=== PATIENT | male | born 1940 | race Caucasian/White ===

== ENCOUNTER 2018-02-10 12:41 | Outpatient (CLI) | payer MEDICARE, BC ==
[~2018-02-10] VITALS: Ht 177.8 cm; Wt 89.4 kg
[~2018-02-10 12:41] MED LIST: AMLO2.5T2 PO; ASPI-611 PO; CARV-50 PO; FLO0.4C PO; LISI-600 PO; ZOC40T PO
[2018-02-10] MEDS ORDERED: albuterol 2.5 MG/3 ML nebule NEB PRN (13:20)
== END 2018-02-10 23:59 | disposition home or self-care (01) ==
LOC: RT 12:41
PROVIDERS: ATTEND Internal Medicine
DX: R05 Cough (principal); F17.200 Nicotine dependence, unspecified, uncomplicated; I10 Essential (primary) hypertension; Z79.899 Other long term (current) drug therapy
CPT/HCPCS: 85018; 94010; 94727; 94729

== ENCOUNTER 2019-08-02 14:15 | Inpatient (IN) | payer MEDICARE, BC ==
[~2019-08-02] VITALS: Ht 182.9 cm; Wt 88.6 kg
[2019-08-02] MEDS ORDERED: normal saline 1000ML IV soln IV ONE (14:35)
--- NOTE | 2019-08-02 14:54 | NUR ---
breaking primary RN, pt is sitting up in bed, awaiting lab results
--- NOTE | 2019-08-02 14:56 | NUR ---
pt to ct
[2019-08-02 14:57] LABS: BASOPHILS # (AUTO) 0.1 X10'3 (0-0.2); BASOPHILS % (AUTO) 0.4 % (0-1); EOSINOPHILS % (AUTO) 0.1 % (0-6); HEMATOCRIT 37.3 % (42.0-52.0); HEMOGLOBIN 12.7 g/dl (14.0-17.9); LYMPHOCYTES # (AUTO) 0.2 X10'3 (1.1-4.8); LYMPHOCYTES % (AUTO) 1.4 % (21-51); MEAN CORPUSCULAR HEMOGLOBIN 33.7 PG (27.0-31.0); MEAN CORPUSCULAR HGB CONC 34.1 g/dL (33.0-36.5); MEAN CORPUSCULAR VOLUME 98.7 FL (78-98); MEAN PLATELET VOLUME 7.5 FL (7.4-10.4); MONOCYTES # (AUTO) 0.4 X10'3 (0-0.9); MONOCYTES % (AUTO) 3.3 % (2-12); NEUTROPHILS # (AUTO) 12.8 X10'3 (1.8-7.7); NEUTROPHILS % (AUTO) 94.8 % (42-75); PLATELET COUNT 205 X10'3 (140-440); RED BLOOD COUNT 3.78 X10'6 (4.70-6.10); RED CELL DISTRIBUTION WIDTH 13.5 % (11.5-14.5); WHITE BLOOD COUNT 13.5 X10'3 (4.5-11.0)
[2019-08-02 15:13] LABS: ALANINE AMINOTRANSFERASE 18 U/L (12-78); ALBUMIN 3.3 G/DL (3.4-5.0); ALKALINE PHOSPHATASE 83 IU/L (46-116); ANION GAP 9 (8-16); ASPARTATE AMINO TRANSFERASE 12 U/L (10-37); BILIRUBIN,TOTAL 0.9 MG/DL (0.1-1.0); BLOOD UREA NITROGEN 38 MG/DL (7-18); BUN/CREATININE RATIO 21.5 (5.4-32.0); CALCIUM 8.2 MG/DL (8.5-10.1); CHLORIDE 99 MMOL/L (99-107); CREATININE 1.77 MG/DL (0.60-1.10); GLUCOSE 98 MG/DL (70-104); MAGNESIUM 1.5 MG/DL (1.5-2.4); POTASSIUM 4.2 MMOL/L (3.5-5.1); SODIUM 131 MMOL/L (135-145); TOTAL CARBON DIOXIDE 22.7 MMOL/L (24-32); TOTAL PROTEIN 6.7 G/DL (6.4-8.2); eGFR 37 ML/MIN
[2019-08-02] MEDS ORDERED: LISI10TA4 PO (15:23)
[2019-08-02] MEDS ORDERED: TROS20TA4 PO (15:23)
[2019-08-02] MEDS ORDERED: ROSU10TA28 PO (15:23)
[2019-08-02] MEDS ORDERED: WARF4TAB69 PO (15:23)
[2019-08-02] MEDS ORDERED: AMIO100T PO (15:23)
[2019-08-02] MEDS ORDERED: LACT10SO66 PO (15:23)
[2019-08-02] MEDS ORDERED: FLO0.4C PO (15:23)
[2019-08-02 15:41] LABS: CLARITY,URINE TURBID (Clear); COLOR,URINE AMBER (Yellow); GLUCOSE, URINE NEGATIVE (Neg); KETONES,URINE TRACE mg/dl (Neg); LEUKOCYTE ESTERASE ,URINE LARGE (Neg); NITRITES, URINE NEGATIVE (Neg); OCCULT BLOOD,URINE LARGE (Neg); PH,URINE 5.5 (4.8-8.0); PROTEIN,URINE 100 mg/dl (Neg); UA COLLECTION TYPE STRAIGHT CATH
[2019-08-02] MEDS ORDERED: CefTRIAXone 2gm/D5W 50ml 50 ML IV ONE (15:45)
[2019-08-02 15:50] LABS: RBC,URINE TNTC /HPF (0-2)
[2019-08-02 15:51] LABS: BACTERIA,URINE FEW /HPF (Neg); SQUAMOUS EPITHELIAL CELL,UR FEW /LPF (FEW); WBC,URINE TNTC /HPF (0-4)
[2019-08-02 15:52] LABS: MUCUS STRANDS NONE SEEN /LPF (Neg); TRANSITIONAL EPI CELLS,URINE FEW /HPF
[2019-08-02 15:54] LABS: RENAL CELLS, URINE FEW /HPF
[2019-08-02] MEDS ORDERED: lactulose 20gm/30ml cup PO PRN (16:15)
[2019-08-02] MEDS ORDERED: acetaminophen 325mg tablet PO PRN (16:20)
[2019-08-02] MEDS ORDERED: mag hydrox/Alum hydrox/simeth 30ml oral suspension PO PRN (16:20)
[2019-08-02] MEDS ORDERED: levoFLOXACIN-Levaquin 750MG/D5 150 ML IV SCH (16:20)
[2019-08-02] MEDS ORDERED: potassium Cl 20 mEq SR tablet PO PRN (16:20)
[2019-08-02] MEDS ORDERED: potassium CL 10mEq/100ml bag 100 ML IV PRN ×2 (16:20)
[2019-08-02] MEDS ORDERED: ondansetron/PF 4mg/2ml inj IV PRN (16:20)
[2019-08-02] MEDS ORDERED: magnesium hydroxide 30ml (MOM) UD suspension PO PRN (16:20)
[2019-08-02] MEDS: normal saline 1000ml 1,000 ML IV SCH (17:41)
[2019-08-02 20:00] VITALS: BP 144/67
--- NOTE | 2019-08-02 20:00 | NUR ---
received report from Jesse JAMA in the ER. Pt arrived on the unit with VSS and at bedside. No signs of distress, will continue to monitor.
[2019-08-02] MEDS: lactobacillus rhamnosus 10,000 MMU CELLS/CAPSULE PO SCH (21:07)
[2019-08-02] MEDS: oxybutynin 5mg tablet PO SCH (21:07)
[2019-08-03 00:35] VITALS: BP 118/70
[2019-08-03] MEDS: normal saline 1000ml 1,000 ML IV SCH ×4 (02:45→23:58)
[2019-08-03 05:56] LABS: BASOPHILS % (AUTO) 0.2 % (0-1); EOSINOPHILS % (AUTO) 0.1 % (0-6); HEMATOCRIT 34.5 % (42.0-52.0); HEMOGLOBIN 11.7 g/dl (14.0-17.9); LYMPHOCYTES # (AUTO) 0.6 X10'3 (1.1-4.8); LYMPHOCYTES % (AUTO) 3.5 % (21-51); MEAN CORPUSCULAR HEMOGLOBIN 33.5 PG (27.0-31.0); MEAN CORPUSCULAR HGB CONC 33.9 g/dL (33.0-36.5); MEAN CORPUSCULAR VOLUME 98.9 FL (78-98); MEAN PLATELET VOLUME 8.2 FL (7.4-10.4); MONOCYTES # (AUTO) 1.6 X10'3 (0-0.9); MONOCYTES % (AUTO) 8.7 % (2-12); NEUTROPHILS # (AUTO) 15.8 X10'3 (1.8-7.7); NEUTROPHILS % (AUTO) 87.5 % (42-75); PLATELET COUNT 199 X10'3 (140-440); RED BLOOD COUNT 3.49 X10'6 (4.70-6.10); RED CELL DISTRIBUTION WIDTH 13.5 % (11.5-14.5); WHITE BLOOD COUNT 18.1 X10'3 (4.5-11.0)
[2019-08-03 06:16] LABS: ALANINE AMINOTRANSFERASE 14 U/L (12-78); ALBUMIN 2.6 G/DL (3.4-5.0); ALBUMIN/GLOBULIN RATIO 0.8 (1.1-1.5); ALKALINE PHOSPHATASE 82 IU/L (46-116); ANION GAP 9 (8-16); ASPARTATE AMINO TRANSFERASE 20 U/L (10-37); BILIRUBIN,TOTAL 0.6 MG/DL (0.1-1.0); BLOOD UREA NITROGEN 28 MG/DL (7-18); BUN/CREATININE RATIO 21.7 (5.4-32.0); CALCIUM 8.1 MG/DL (8.5-10.1); CHLORIDE 103 MMOL/L (99-107); CREATININE 1.29 MG/DL (0.60-1.10); GLUCOSE 80 MG/DL (70-104); POTASSIUM 4.1 MMOL/L (3.5-5.1); SODIUM 133 MMOL/L (135-145); TOTAL CARBON DIOXIDE 20.7 MMOL/L (24-32); TOTAL PROTEIN 5.8 G/DL (6.4-8.2); eGFR 54 ML/MIN
--- NOTE | 2019-08-03 06:45 | NUR ---
Problems reprioritized. Patient report given, questions answered & plan of care reviewed with Becky JAMA and 2 nursing students from [facility].
[2019-08-03 08:00] VITALS: BP 140/69
[2019-08-03] MEDS: K and/or MAG REPLACEMENT MC SCH (08:00)
[2019-08-03] MEDS: lactobacillus rhamnosus 10,000 MMU CELLS/CAPSULE PO SCH ×2 (08:21→19:58)
[2019-08-03] MEDS: lisinopril 10 MG tablet PO SCH (08:22)
[2019-08-03] MEDS: atorvastatin 20mg tablet PO SCH (08:23)
[2019-08-03] MEDS: amiodarone 100mg tablet PO SCH (08:23)
[2019-08-03] MEDS: oxybutynin 5mg tablet PO SCH ×3 (08:23→20:01)
[2019-08-03] MEDS: tamsulosin 0.4mg capsule PO SCH (08:23)
[2019-08-03 11:06] VITALS: BP 131/64
[2019-08-03 18:00] VITALS: BP 145/67
--- NOTE | 2019-08-03 18:35 | NUR ---
Problems reprioritized. Patient report given, questions answered & plan of care reviewed with WILEY Blakely.
--- NOTE | 2019-08-03 18:35 | NUR ---
Patient in room [facility] 359. I have received report from WILEY Pena and had the opportunity to ask questions and assume patient care.
[2019-08-03] MEDS ORDERED: prazosin 1mg capsule PO ONE (23:10)
[2019-08-03 23:18] VITALS: BP 174/97
--- NOTE | 2019-08-03 23:22 | NUR ---
Patient is very confused tonight and got out of bed, refusing to get back in bed, stating he was going to walk to his house. Pt was not oriented to time or place and after repeatedly refusing to get back in bed, a akosua marcano was called to help assist pt in getting back in bed for his safety. Pt was not physically combative at all.
[2019-08-04] VITALS: BP 164/83
[2019-08-04] MEDS ORDERED: LORazepam 1 MG tablet PO ONE (02:10)
[2019-08-04 05:53] LABS: BASOPHILS % (AUTO) 0.1 % (0-1); EOSINOPHILS # (AUTO) 0.1 X10'3 (0-0.9); EOSINOPHILS % (AUTO) 0.6 % (0-6); HEMATOCRIT 36.5 % (42.0-52.0); HEMOGLOBIN 12.4 g/dl (14.0-17.9); LYMPHOCYTES # (AUTO) 0.7 X10'3 (1.1-4.8); LYMPHOCYTES % (AUTO) 5.4 % (21-51); MEAN CORPUSCULAR HEMOGLOBIN 33.8 PG (27.0-31.0); MEAN CORPUSCULAR HGB CONC 33.8 g/dL (33.0-36.5); MEAN CORPUSCULAR VOLUME 99.8 FL (78-98); MEAN PLATELET VOLUME 8.2 FL (7.4-10.4); MONOCYTES # (AUTO) 1.3 X10'3 (0-0.9); MONOCYTES % (AUTO) 9.4 % (2-12); NEUTROPHILS # (AUTO) 11.6 X10'3 (1.8-7.7); NEUTROPHILS % (AUTO) 84.5 % (42-75); PLATELET COUNT 203 X10'3 (140-440); RED BLOOD COUNT 3.66 X10'6 (4.70-6.10); RED CELL DISTRIBUTION WIDTH 13.6 % (11.5-14.5); WHITE BLOOD COUNT 13.7 X10'3 (4.5-11.0)
[2019-08-04 06:07] LABS: ALANINE AMINOTRANSFERASE 20 U/L (12-78); ALBUMIN 2.6 G/DL (3.4-5.0); ALBUMIN/GLOBULIN RATIO 0.8 (1.1-1.5); ALKALINE PHOSPHATASE 83 IU/L (46-116); ANION GAP 10 (8-16); ASPARTATE AMINO TRANSFERASE 25 U/L (10-37); BILIRUBIN,TOTAL 0.8 MG/DL (0.1-1.0); BLOOD UREA NITROGEN 20 MG/DL (7-18); BUN/CREATININE RATIO 17.5 (5.4-32.0); CALCIUM 8.9 MG/DL (8.5-10.1); CHLORIDE 103 MMOL/L (99-107); CREATININE 1.14 MG/DL (0.60-1.10); GLUCOSE 86 MG/DL (70-104); POTASSIUM 3.7 MMOL/L (3.5-5.1); SODIUM 135 MMOL/L (135-145); TOTAL CARBON DIOXIDE 22.5 MMOL/L (24-32); eGFR 62 ML/MIN
--- NOTE | 2019-08-04 06:31 | NUR ---
Problems reprioritized. Patient report given, questions answered & plan of care reviewed with WILEY Davies.
--- NOTE | 2019-08-04 06:36 | NUR ---
Patients Arminda was called and given an update on how his night went.
--- NOTE | 2019-08-04 06:44 | NUR ---
Patient in room [facility] 359. I have received report from WILEY Blakely and had the opportunity to ask questions and assume patient care.
[2019-08-04 07:27] VITALS: BP 173/83
[2019-08-04] MEDS ORDERED: levoFLOXACIN-Levaquin 750MG/D5 150 ML IV SCH (08:00)
[2019-08-04] MEDS: K and/or MAG REPLACEMENT MC SCH (08:00)
[2019-08-04] MEDS: lisinopril 10 MG tablet PO SCH (08:03)
[2019-08-04] MEDS: amiodarone 100mg tablet PO SCH (08:03)
[2019-08-04] MEDS: oxybutynin 5mg tablet PO SCH ×4 (08:03→20:19)
[2019-08-04] MEDS: tamsulosin 0.4mg capsule PO SCH (08:03)
[2019-08-04] MEDS: lactobacillus rhamnosus 10,000 MMU CELLS/CAPSULE PO SCH ×2 (08:03→20:19)
[2019-08-04] MEDS: atorvastatin 20mg tablet PO SCH (08:04)
[2019-08-04] MEDS ORDERED: hydrALAZINE 20mg/ml inj. IV PRN ×2 (09:05→22:45)
[2019-08-04 11:10] VITALS: BP 166/89
[2019-08-04] MEDS: piperacillin/tazo 3.375gm/50ml 50 ML IV SCH (17:11)
--- NOTE | 2019-08-04 18:10 | NUR ---
Patient in room [facility] 359. I have received report from Keke JAMA and had the opportunity to ask questions and assume patient care.
[2019-08-04 20:00] VITALS: BP 148/78
[2019-08-04] MEDS: diatr meglu/diatrizoate 30ml oral sol.-(3 dose) bottle PO SCH (20:22)
[2019-08-04] MEDS ORDERED: warfarin 5mg tablet PO ONE (21:00)
[2019-08-05] VITALS: BP 159/85
[2019-08-05] MEDS: piperacillin/tazo 3.375gm/50ml 50 ML IV SCH ×3 (00:14→16:22)
[2019-08-05 06:24] LABS: BASOPHILS % (AUTO) 0.4 % (0-1); EOSINOPHILS # (AUTO) 0.1 X10'3 (0-0.9); HEMATOCRIT 37.3 % (42.0-52.0); HEMOGLOBIN 12.6 g/dl (14.0-17.9); LYMPHOCYTES # (AUTO) 0.8 X10'3 (1.1-4.8); LYMPHOCYTES % (AUTO) 8.1 % (21-51); MEAN CORPUSCULAR HEMOGLOBIN 32.9 PG (27.0-31.0); MEAN CORPUSCULAR HGB CONC 33.7 g/dL (33.0-36.5); MEAN CORPUSCULAR VOLUME 97.5 FL (78-98); MEAN PLATELET VOLUME 8.2 FL (7.4-10.4); MONOCYTES # (AUTO) 1.2 X10'3 (0-0.9); MONOCYTES % (AUTO) 13.1 % (2-12); NEUTROPHILS # (AUTO) 7.2 X10'3 (1.8-7.7); NEUTROPHILS % (AUTO) 77.4 % (42-75); PLATELET COUNT 243 X10'3 (140-440); RED BLOOD COUNT 3.82 X10'6 (4.70-6.10); RED CELL DISTRIBUTION WIDTH 13.3 % (11.5-14.5); WHITE BLOOD COUNT 9.3 X10'3 (4.5-11.0)
[2019-08-05 06:28] LABS: ALANINE AMINOTRANSFERASE 22 U/L (12-78); ALBUMIN 2.6 G/DL (3.4-5.0); ALBUMIN/GLOBULIN RATIO 0.8 (1.1-1.5); ALKALINE PHOSPHATASE 97 IU/L (46-116); ANION GAP 11 (8-16); ASPARTATE AMINO TRANSFERASE 27 U/L (10-37); BILIRUBIN,TOTAL 0.8 MG/DL (0.1-1.0); BLOOD UREA NITROGEN 19 MG/DL (7-18); BUN/CREATININE RATIO 17.4 (5.4-32.0); CALCIUM 8.2 MG/DL (8.5-10.1); CHLORIDE 102 MMOL/L (99-107); CREATININE 1.09 MG/DL (0.60-1.10); GLUCOSE 95 MG/DL (70-104); POTASSIUM 3.4 MMOL/L (3.5-5.1); SODIUM 135 MMOL/L (135-145); TOTAL CARBON DIOXIDE 22.3 MMOL/L (24-32); TOTAL PROTEIN 5.9 G/DL (6.4-8.2); eGFR 65 ML/MIN
--- NOTE | 2019-08-05 06:28 | NUR ---
Problems reprioritized. Patient report given, questions answered & plan of care reviewed with Keke JAMA.
--- NOTE | 2019-08-05 06:39 | NUR ---
Patient in room [facility] 359. I have received report from WILEY Polanco and had the opportunity to ask questions and assume patient care.
--- NOTE | 2019-08-05 06:47 | NUR ---
Patient in room [facility] 359. I have received report from WILEY Polanco and had the opportunity to ask questions and assume patient care.
[2019-08-05 07:06] VITALS: BP 179/99
[2019-08-05] MEDS: tamsulosin 0.4mg capsule PO SCH (07:15)
[2019-08-05] MEDS: amiodarone 100mg tablet PO SCH (07:15)
[2019-08-05] MEDS: diatr meglu/diatrizoate 30ml oral sol.-(3 dose) bottle PO SCH ×2 (07:15→08:07)
[2019-08-05] MEDS: lactobacillus rhamnosus 10,000 MMU CELLS/CAPSULE PO SCH ×2 (07:15→20:40)
[2019-08-05] MEDS: oxybutynin 5mg tablet PO SCH ×3 (07:15→20:39)
[2019-08-05] MEDS: atorvastatin 20mg tablet PO SCH (07:15)
[2019-08-05] MEDS: lisinopril 10 MG tablet PO SCH (07:18)
[2019-08-05] MEDS: K and/or MAG REPLACEMENT MC SCH (08:00)
[2019-08-05] MEDS ORDERED: iohexol 300mg/ml 100ml inj. ONE (08:01)
[2019-08-05] MEDS: potassium Cl 20 mEq SR tablet PO PRN ×2 (08:07→13:44)
--- NOTE | 2019-08-05 08:15 | NUR ---
Pt transported to CT via wheelchair by PCT
--- NOTE | 2019-08-05 08:37 | NUR ---
Pt back from CT
[2019-08-05 11:00] VITALS: BP 111/68
[2019-08-05 18:00] VITALS: BP 164/92
--- NOTE | 2019-08-05 18:47 | NUR ---
Problems reprioritized. Patient report given, questions answered & plan of care reviewed with WILEY Little.
--- NOTE | 2019-08-05 18:57 | NUR ---
Patient in room [facility] 359. I have received report from Keke JAMA and had the opportunity to ask questions and assume patient care. Patient is sleeping and shows no sign of distress
[2019-08-05] MEDS ORDERED: warfarin 5mg tablet PO ONE (21:00)
[2019-08-06] VITALS: BP 174/92
[2019-08-06] MEDS: piperacillin/tazo 3.375gm/50ml 50 ML IV SCH ×2 (00:06→07:57)
[2019-08-06 05:47] LABS: BASOPHILS % (AUTO) 0.6 % (0-1); EOSINOPHILS # (AUTO) 0.3 X10'3 (0-0.9); EOSINOPHILS % (AUTO) 3.4 % (0-6); HEMATOCRIT 35.1 % (42.0-52.0); HEMOGLOBIN 12.3 g/dl (14.0-17.9); LYMPHOCYTES # (AUTO) 0.9 X10'3 (1.1-4.8); LYMPHOCYTES % (AUTO) 12.1 % (21-51); MEAN CORPUSCULAR HEMOGLOBIN 34.2 PG (27.0-31.0); MEAN CORPUSCULAR HGB CONC 35.1 g/dL (33.0-36.5); MEAN CORPUSCULAR VOLUME 97.5 FL (78-98); MEAN PLATELET VOLUME 7.5 FL (7.4-10.4); MONOCYTES # (AUTO) 1.3 X10'3 (0-0.9); MONOCYTES % (AUTO) 16.7 % (2-12); NEUTROPHILS # (AUTO) 5.2 X10'3 (1.8-7.7); NEUTROPHILS % (AUTO) 67.2 % (42-75); PLATELET COUNT 231 X10'3 (140-440); RED CELL DISTRIBUTION WIDTH 13.4 % (11.5-14.5); WHITE BLOOD COUNT 7.8 X10'3 (4.5-11.0)
[2019-08-06 05:57] LABS: ALANINE AMINOTRANSFERASE 20 U/L (12-78); ALBUMIN 2.4 G/DL (3.4-5.0); ALBUMIN/GLOBULIN RATIO 0.8 (1.1-1.5); ALKALINE PHOSPHATASE 88 IU/L (46-116); ANION GAP 8 (8-16); ASPARTATE AMINO TRANSFERASE 20 U/L (10-37); BILIRUBIN,TOTAL 0.6 MG/DL (0.1-1.0); BLOOD UREA NITROGEN 16 MG/DL (7-18); BUN/CREATININE RATIO 14.3 (5.4-32.0); CALCIUM 7.8 MG/DL (8.5-10.1); CHLORIDE 104 MMOL/L (99-107); CREATININE 1.12 MG/DL (0.60-1.10); GLUCOSE 90 MG/DL (70-104); POTASSIUM 3.5 MMOL/L (3.5-5.1); SODIUM 137 MMOL/L (135-145); TOTAL PROTEIN 5.5 G/DL (6.4-8.2); eGFR 63 ML/MIN
--- NOTE | 2019-08-06 06:06 | NUR ---
Patient in room [facility] 359. I have received report from WILEY Little and had the opportunity to ask questions and assume patient care.
--- NOTE | 2019-08-06 06:09 | NUR ---
Problems reprioritized. Patient report given, questions answered & plan of care reviewed with Keke JAMA. Patient slept well last night and denied having pain.
[2019-08-06 07:00] VITALS: BP 177/84
[2019-08-06] MEDS: lisinopril 10 MG tablet PO SCH (07:57)
[2019-08-06] MEDS: tamsulosin 0.4mg capsule PO SCH (07:58)
[2019-08-06] MEDS: atorvastatin 20mg tablet PO SCH (07:58)
[2019-08-06] MEDS: amiodarone 100mg tablet PO SCH (07:58)
[2019-08-06] MEDS: oxybutynin 5mg tablet PO SCH (07:58)
[2019-08-06] MEDS: lactobacillus rhamnosus 10,000 MMU CELLS/CAPSULE PO SCH (07:58)
[2019-08-06] MEDS: K and/or MAG REPLACEMENT MC SCH (08:00)
[2019-08-06] MEDS ORDERED: AMOX-422 PO (10:55)
[2019-08-06 11:00] VITALS: BP 148/94
--- NOTE | 2019-08-06 13:39 | NUR ---
Pt discharged to home at 1240, with all belongings, in private vehicle, accompanied by . Discharge instructions and medications reviewed. New prescriptions escripted to [facility] on [facility]. IV DC'd, cannula intact. Pt instructed to follow up with PCP in 1-2 weeks, and to return to ED if signs or symptoms of infection return. Pt escorted to front lobby via wheelchair by PCT.
== END 2019-08-06 12:42 | disposition home or self-care (01) | DRG 871 ==
LOC: ER 14:16 → ED HOLD 17:17 → EDBEDREQSVC 19:29 → SUR 3N 20:17 → CMPBEDREQ 20:59
PROVIDERS: ADMIT Family Medicine; ATTEND Family Medicine
PROC: BW211ZZ Computerized Tomography (CT Scan) of Abdomen and Pelvis using Low Osmolar Contrast (ICD-10-PCS; principal; 2019-08-05)
DX: A41.9 Sepsis, unspecified organism (principal); G92 Toxic encephalopathy; R65.21 Severe sepsis with septic shock; N17.9 Acute kidney failure, unspecified; N10 Acute pyelonephritis; E87.1 Hypo-osmolality and hyponatremia; E78.5 Hyperlipidemia, unspecified; I48.91 Unspecified atrial fibrillation; N40.0 Benign prostatic hyperplasia without lower urinary tract symptoms; R31.29 Other microscopic hematuria; F03.90 Unspecified dementia, unspecified severity, without behavioral disturbance, psychotic disturbance, mood disturbance, and anxiety; I12.9 Hypertensive chronic kidney disease with stage 1 through stage 4 chronic kidney disease, or unspecified chronic kidney disease; N18.9 Chronic kidney disease, unspecified; K62.89 Other specified diseases of anus and rectum; Z80.0 Family history of malignant neoplasm of digestive organs; Z82.49 Family history of ischemic heart disease and other diseases of the circulatory system; Z85.46 Personal history of malignant neoplasm of prostate; Z86.010 Personal history of colon polyps; Z87.440 Personal history of urinary (tract) infections; Z87.891 Personal history of nicotine dependence; Z92.3 Personal history of irradiation; Z98.41 Cataract extraction status, right eye; Z98.42 Cataract extraction status, left eye; Z88.8 Allergy status to other drugs, medicaments and biological substances; Z79.899 Other long term (current) drug therapy; Z98.52 Vasectomy status; Z90.49 Acquired absence of other specified parts of digestive tract
CPT/HCPCS: 36415; 70450; 71045; 74176; 74177; 80053; 81001; 82948; 83605; 83735; 84145; 85025; 85610; 87040; 87077; 87081; 87088; 87186; 93005; 96361; 96365; 96366; 96368; 97110; 97161; 97530; 99285; G0378; J0696; J1956; J2543; J7030; Q9963; Q9967

== ENCOUNTER 2019-08-20 15:01 | Emergency (ER) | payer MEDICARE, BC ==
[~2019-08-20] VITALS: Ht 180.3 cm; Wt 88.6 kg
[~2019-08-20 15:01] MED LIST changes: +AMIO100T PO; -AMLO2.5T2 PO; -ASPI-611 PO; -CARV-50 PO; +LACT10SO66 PO; -LISI-600 PO; +LISI10TA4 PO; +ROSU10TA28 PO; +TROS20TA4 PO; +WARF4TAB69 PO; -ZOC40T PO
[2019-08-20] MEDS ORDERED: normal saline 1000ML IV soln IVB ONE (15:35)
[2019-08-20 15:49] LABS: BASOPHILS # (AUTO) 0.1 X10'3 (0-0.2); BASOPHILS % (AUTO) 0.6 % (0-1); EOSINOPHILS % (AUTO) 0.1 % (0-6); HEMATOCRIT 40.8 % (42.0-52.0); HEMOGLOBIN 13.8 g/dl (14.0-17.9); LYMPHOCYTES # (AUTO) 0.6 X10'3 (1.1-4.8); LYMPHOCYTES % (AUTO) 6.3 % (21-51); MEAN CORPUSCULAR HEMOGLOBIN 33.4 PG (27.0-31.0); MEAN CORPUSCULAR HGB CONC 33.9 g/dL (33.0-36.5); MEAN CORPUSCULAR VOLUME 98.6 FL (78-98); MEAN PLATELET VOLUME 7.5 FL (7.4-10.4); MONOCYTES # (AUTO) 0.6 X10'3 (0-0.9); MONOCYTES % (AUTO) 6.9 % (2-12); NEUTROPHILS # (AUTO) 7.8 X10'3 (1.8-7.7); NEUTROPHILS % (AUTO) 86.1 % (42-75); PLATELET COUNT 408 X10'3 (140-440); RED BLOOD COUNT 4.13 X10'6 (4.70-6.10); RED CELL DISTRIBUTION WIDTH 13.8 % (11.5-14.5); WHITE BLOOD COUNT 9.1 X10'3 (4.5-11.0)
[2019-08-20 16:00] LABS: ALANINE AMINOTRANSFERASE 25 U/L (12-78); ALBUMIN 3.7 G/DL (3.4-5.0); ALKALINE PHOSPHATASE 118 IU/L (46-116); ANION GAP 10 (8-16); ASPARTATE AMINO TRANSFERASE 25 U/L (10-37); BILIRUBIN,TOTAL 0.7 MG/DL (0.1-1.0); BLOOD UREA NITROGEN 22 MG/DL (7-18); BUN/CREATININE RATIO 17.5 (5.4-32.0); CALCIUM 8.5 MG/DL (8.5-10.1); CHLORIDE 99 MMOL/L (99-107); CREATININE 1.26 MG/DL (0.60-1.10); GLUCOSE 116 MG/DL (70-104); LIPASE 52 U/L (73-393); SODIUM 133 MMOL/L (135-145); TOTAL CARBON DIOXIDE 23.9 MMOL/L (24-32); TOTAL PROTEIN 7.5 G/DL (6.4-8.2); eGFR 55 ML/MIN
[2019-08-20 16:04] LABS: POTASSIUM 4.5 MMOL/L (3.5-5.1)
[2019-08-20] MEDS ORDERED: MAGN296S50 PO (16:25)
[2019-08-20] MEDS ORDERED: BISA10SU60 RC (16:25)
--- NOTE | 2019-08-20 17:00 | NUR ---
STR CATH PT. RECEIVED 700CC CLEAR REBECA IN COLOR. PT STATES, FEELING BETTER.
[2019-08-20 17:15] LABS: CLARITY,URINE SLIGHTLY CLOUDY (Clear); COLOR,URINE YELLOW (Yellow); GLUCOSE, URINE NEGATIVE (Neg); KETONES,URINE TRACE mg/dl (Neg); LEUKOCYTE ESTERASE ,URINE NEGATIVE (Neg); NITRITES, URINE NEGATIVE (Neg); OCCULT BLOOD,URINE SMALL (Neg); PH,URINE 5.5 (4.8-8.0); PROTEIN,URINE 100 mg/dl (Neg); UROBILINOGEN,URINE 0.2 E.U/dL (0.2-1.0)
[2019-08-20 17:22] LABS: UA COLLECTION TYPE STRAIGHT CATH
[2019-08-20 17:32] VITALS: BP 183/70
[2019-08-20 17:36] LABS: FINE GRANULAR CAST 0-3 /LPF (NEGATIVE); HYALINE CASTS 0-3 /LPF (NEGATIVE); SQUAMOUS EPITHELIAL CELL,UR FEW /LPF (FEW)
[2019-08-20 17:37] LABS: BACTERIA,URINE FEW /HPF (Neg)
[2019-08-20 17:38] LABS: RBC,URINE 0-2 /HPF (0-2); WBC,URINE 0-4 /HPF (0-4)
== END 2019-08-20 17:45 | disposition home or self-care (01) ==
LOC: ER 15:02
DX: K59.00 Constipation, unspecified (principal); R10.84 Generalized abdominal pain; I10 Essential (primary) hypertension; Z98.890 Other specified postprocedural states; Z79.899 Other long term (current) drug therapy; Z79.01 Long term (current) use of anticoagulants; Z88.8 Allergy status to other drugs, medicaments and biological substances
CPT/HCPCS: 36415; 74176; 80053; 81001; 83690; 85025; 85610; 99284; J7030; P9612

== ENCOUNTER 2019-09-29 11:04 | Emergency (ER) | payer MEDICARE, BC ==
[~2019-09-29] VITALS: Ht 180.3 cm; Wt 88.6 kg
[~2019-09-29 11:04] MED LIST changes: +BISA10SU60 RC; +MAGN296S50 PO
[2019-09-29 11:53] LABS: CLARITY,URINE CLEAR (Clear); COLOR,URINE STRAW (Yellow); GLUCOSE, URINE NEGATIVE (Neg); KETONES,URINE NEGATIVE (Neg); LEUKOCYTE ESTERASE ,URINE NEGATIVE (Neg); NITRITES, URINE NEGATIVE (Neg); OCCULT BLOOD,URINE MODERATE (Neg); PH,URINE 7.5 (4.8-8.0); PROTEIN,URINE NEGATIVE (Neg); UROBILINOGEN,URINE 0.2 E.U/dL (0.2-1.0)
[2019-09-29 11:56] LABS: UA COLLECTION TYPE STRAIGHT CATH
[2019-09-29 12:00] LABS: BACTERIA,URINE NONE SEEN /HPF (Neg); WBC,URINE NONE SEEN /HPF (0-4)
[2019-09-29 12:01] LABS: SQUAMOUS EPITHELIAL CELL,UR FEW /LPF (FEW)
[2019-09-29 12:10] VITALS: BP 182/70
[2019-09-29 12:25] LABS: BASOPHILS % (AUTO) 0.7 % (0-1); EOSINOPHILS # (AUTO) 0.1 X10'3 (0-0.9); EOSINOPHILS % (AUTO) 1.3 % (0-6); HEMOGLOBIN 13.4 g/dl (14.0-17.9); LYMPHOCYTES % (AUTO) 15.2 % (21-51); MEAN CORPUSCULAR HEMOGLOBIN 33.5 PG (27.0-31.0); MEAN CORPUSCULAR HGB CONC 34.3 g/dL (33.0-36.5); MEAN CORPUSCULAR VOLUME 97.7 FL (78-98); MONOCYTES # (AUTO) 0.8 X10'3 (0-0.9); MONOCYTES % (AUTO) 11.8 % (2-12); NEUTROPHILS # (AUTO) 4.7 X10'3 (1.8-7.7); PLATELET COUNT 308 X10'3 (140-440); RED BLOOD COUNT 3.99 X10'6 (4.70-6.10); RED CELL DISTRIBUTION WIDTH 13.8 % (11.5-14.5); WHITE BLOOD COUNT 6.6 X10'3 (4.5-11.0)
[2019-09-29 12:36] LABS: ALANINE AMINOTRANSFERASE 27 U/L (12-78); ALBUMIN 3.3 G/DL (3.4-5.0); ALKALINE PHOSPHATASE 145 IU/L (46-116); ANION GAP 8 (8-16); ASPARTATE AMINO TRANSFERASE 23 U/L (10-37); BILIRUBIN,TOTAL 0.6 MG/DL (0.1-1.0); BLOOD UREA NITROGEN 21 MG/DL (7-18); BUN/CREATININE RATIO 17.4 (5.4-32.0); CALCIUM 8.8 MG/DL (8.5-10.1); CHLORIDE 103 MMOL/L (99-107); CREATININE 1.21 MG/DL (0.60-1.10); GLUCOSE 99 MG/DL (70-104); POTASSIUM 4.4 MMOL/L (3.5-5.1); SODIUM 137 MMOL/L (135-145); TOTAL CARBON DIOXIDE 26.3 MMOL/L (24-32); TOTAL PROTEIN 6.5 G/DL (6.4-8.2); eGFR 58 ML/MIN
[2019-09-29] MEDS ORDERED: HYDROcodone/acetaminophen 5mg/325mg tablet PO ONE (13:15)
[2019-09-29] MEDS ORDERED: HYDR-3965 PO (13:16)
== END 2019-09-29 13:41 | disposition home or self-care (01) ==
LOC: ER 11:05
DX: M54.5 Low back pain (principal); R41.82 Altered mental status, unspecified; I48.91 Unspecified atrial fibrillation; I10 Essential (primary) hypertension; Z98.890 Other specified postprocedural states; Z88.8 Allergy status to other drugs, medicaments and biological substances; Z79.899 Other long term (current) drug therapy; Z79.01 Long term (current) use of anticoagulants
CPT/HCPCS: 36415; 80053; 81001; 85025; 99283